=== PATIENT | male | born 1985 | race Caucasian/White ===

== ENCOUNTER 2017-11-02 08:33 | Day surgery (SDC) | payer BC, MEDICAID ==
[~2017-11-02] VITALS: Ht 180.3 cm; Wt 106.6 kg
--- NOTE | ~2017-11-02 | OP ---
PATIENT NAME: JOSIE VILLASEÑOR MEDICAL RECORD: [id number] :83 LOCATION:[facility] ADMISSION DATE: SURGEON: ESVIN GUSTAFSON DO DATE OF OPERATION: 11/02/2017 PROCEDURES PERFORMED: Left knee arthroscopy with medial femoral condyle microfracture and partial medial meniscectomy. PREOPERATIVE DIAGNOSIS: Left medial meniscal tear. POSTOPERATIVE DIAGNOSES: Left medial meniscal tear with large osteochondral lesion full-thickness on the medial femoral condyle and partial anterior cruciate ligament tear. INDICATIONS: Mr. Villaseñor is a 32-year-old male who presented to my office after seeing his primary care and had an MRI, which showed medial meniscal tear. He had catching and locking for some time and he is tired of it and wanting something done. We offered him a knee scope and he wanted to have it done. Once this was done, he was signed up for surgery today. SURGEON: Esvin Gustafson DO ANESTHESIA: General. DESCRIPTION OF PROCEDURE: The patient was taken to the operative suite and laid in the supine position. The patient was given a gram of Ancef preoperatively. His left lower extremity was prepped and draped in a sterile fashion. Once this was done, a timeout was performed; everyone was in agreement as the correct site, side, and patient. The left knee was then flexed. The portal sites were injected with 4 mL of 0.5% Marcaine without epinephrine, medial and lateral. The lateral portal was then established with an 11-blade scalpel. The trocar was entered into the knee and the suprapatellar pouch. The scope itself was then placed into the knee, inspecting the suprapatellar pouch with no loose bodies seen, the lateral gutter with no loose bodies, the medial gutter had no loose bodies. Then, the knee was flexed down and a large osteochondral lesion full-thickness was seen in the medial femoral condyle. This was treated with the shaver and the medial meniscal tear had subluxed underneath that. It was reduced and due to the subluxing in to where it was, this was then resected. The medial meniscus was resected back to a stable position where it was not subluxing anymore over the condyle as it had before. This was taken out with a shaver and a biter. The rest of the knee was then inspected. The ACL was seen to be partially torn off the lateral femoral condyle in the notch. The lateral compartment was then inspected and no meniscal tears were seen there. It was decided at that time to do a microfracture and nothing about the ACL due to the patient not being informed of it. We will address this in his postop. At that time, a microfracture was performed over the medial femoral condyle with a PowerPick. After this was done, all loose bodies were evacuated from the knee and the instruments were withdrawn from the knee and portal sites were closed with 4-0 Monocryl in an inverted interrupted fashion. Steri-Strips, Adaptic, 4 x 4, and ABD were then placed on the knee. Webril and Hardik wrap were then placed on the knee and the knee was placed in a knee immobilizer and DIANA hose up to the knee. COMPLICATIONS: None. OPERATIVE REPORT [id number] JOSIE VILLASEÑOR BLOOD LOSS: Minimal. TRANSINT:[id number] Voice Confirmation ID: [id number] DOCUMENT ID: [id number] ESVIN GUSTAFSON DO at 1930 CC: [id number] DICTATION DATE: 11/02/17 1602 MATERIAL DAMAGE APPRAISER: 11/02/17 1850 [facility] 11/02/17 [facility] [address] [place] [address]
[~2017-11-02 08:33] MED LIST: NEXIUM40 MG PO; TOPROL XL50 MG PO
[2017-11-02 09:33] LABS: HEMATOCRIT 42.9 % (42.0-54.0); MCH 30.3 pg (26.0-34.0); MCV 86.7 fL (80.0-100.0); MEAN PLATELET VOLUME 9.2 fL (7.4-10.4); RBC 4.95 10x6/uL (4.20-6.10); RDW 12.4 % (11.5-14.5); WBC 7.4 10x3/uL (4.8-10.8)
[2017-11-02 09:39] VITALS: BP 106/82; Ht 180.3 cm; Wt 106.6 kg
[2017-11-02] MEDS ORDERED: PERCOCET 7.5/321 TAB PO (15:58)
== END 2017-11-02 17:30 | disposition home or self-care (01) ==
LOC: D.OPS 08:33 → D.PAN 11:15 → D.OPS 12:45 → D.PAN 12:45 → D.OPS 17:30
PROVIDERS: Anesthesiology
DX: S83.241A Other tear of medial meniscus, current injury, right knee, initial encounter (principal); I10 Essential (primary) hypertension; K21.9 Gastro-esophageal reflux disease without esophagitis; Z01.812 Encounter for preprocedural laboratory examination; S83.512A Sprain of anterior cruciate ligament of left knee, initial encounter; X58.XXXA Exposure to other specified factors, initial encounter; E66.9 Obesity, unspecified

== ENCOUNTER → 2017-11-08 09:47 | Outpatient (CLI) | payer BC, MEDICAID ==
[2017-11-02 09:39] VITALS: BMI 32.8
[~2017-11-08 09:47] MED LIST changes: +PERCOCET 7.5/321 TAB PO
== END | disposition home or self-care (01) ==
LOC: D.US 09:47
DX: R60.0 Localized edema (principal)